=== PATIENT | female | born 1965 | race Caucasian/White ===

== ENCOUNTER 2017-06-20 09:03 | Day surgery (SDC) | payer BC ==
[2017-06-20 09:17] VITALS: BMI 37.2
[2017-06-20] MEDS: Lactated Ringer's 500 ML IV ONE (09:25)
[2017-06-20] MEDS ORDERED: Simethicone 40 mg/0.6 ml Liquid (30 ml) ONE (09:27)
[2017-06-20] MEDS ORDERED: Midazolam 2 MG/2 ML VIAL ONE (10:43)
[2017-06-20] MEDS ORDERED: Propofol 10 mg/ml Inj (20 ML) ONE (10:44)
[2017-06-20 11:12] VITALS: PULSE 86; TEMP 97.4
[2017-06-20 11:38] VITALS: BP 130/72; RESP 21; O2SAT 100
== END 2017-06-20 11:57 | disposition home or self-care (01) ==
LOC: H.ENDO 09:03
PROVIDERS: ATTEND Internal Medicine Gastroenterology
DX: K21.9 Gastro-esophageal reflux disease without esophagitis (principal); K27.9 Peptic ulcer, site unspecified, unspecified as acute or chronic, without hemorrhage or perforation; I10 Essential (primary) hypertension; R12 Heartburn
CPT/HCPCS: 43239; 88305; J2250; J2704; J7120